=== PATIENT | male | born 2005 | race Caucasian/White ===

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

== ENCOUNTER 2024-06-24 22:45 | Emergency (ER) | payer MEDICAID, SELFPAY ==
[2024-06-24 22:46] VITALS: BP 133/91; PULSE 65; RESP 18; TEMP 36.8; O2SAT 96; BMI 27.3
[2024-06-24 23:23] VITALS: BP 135/85; PULSE 66; O2SAT 98
[2024-06-24 23:26] LABS: Bilirubin Urine Negative (Negative); Blood Urine Negative (Negative); Glucose Urine UA Negative (Normal); Ketones Urine Trace (Negative); Leukocyte Esterase Urine Negative (Negative); Nitrate Urine Negative (Negative); Protein Urine Negative (Negative); Specific Gravity, Urine 1.029 (1.005-1.030); Urine Appearance Clear (CLEAR); Urine Color Yellow (Yellow)
[2024-06-24 23:29] LABS: Bacteria Urine None Seen /hpf; RBC Urine 0-2 /hpf (0-2); Squamous Epithelial Cell Urine 0-5 /hpf (0-5); WBC Urine 0-5 /hpf (0-5)
[2024-06-25] VITALS: BP 132/94; PULSE 72; O2SAT 98
--- NOTE | 2024-06-25 00:05 | W.ED.MALEGU ---
HPI - Male Genitourinary General: Chief complaint: Urogenital-Male Stated complaint: Testicles Hurt Time Seen by Provider: 06/24/24 23:37 History of Present Illness: 19-year-old male patient with a history of right sided testicular pain for the past 24 hours or so. He noticed that walking yesterday now. Now it hurts with getting up from sitting, walking, etc. No fever. No penile discharge. No change in the look of his urine. He has not had this problem before. Related Data Home Medications ?Medication ?Instructions ?Recorded ?Confirmed hydroxyzine HCl 25 mg tablet 25 mg PO .HS 08/26/21 05/15/23 vortioxetine 10 mg tablet 10 mg PO DAILY 08/26/21 05/15/23 (Trintellix) Previous Rx's ?Medication ?Instructions ?Recorded prazosin 5 mg capsule 5 mg PO .HS #30 caps 08/26/21 meclizine 50 mg tablet 50 mg PO TID PRN dizziness #30 tabs 05/15/23 ketorolac 10 mg tablet 10 mg PO TID PRN pain #10 tabs 06/25/24 Allergies Allergy/AdvReac Type Severity Reaction Status Date / Time No Known Allergies Allergy Verified 05/15/23 11:37 [facility] ED PFSH: Social History Smoking and tobacco/nicotine status: never used tobacco/nicotine Second hand smoke exposure: No Physical Exam Const: COMMON NORMALS: no acute distress GENERAL APPEARANCE: cooperative; not ill appearing and not frail appearing HENMT: COMMON NORMALS: normocephalic, atraumatic and Normal external nose present HEAD & SCALP: normocephalic and atraumatic FACE & SINUS: normal facial exam and face symmetric NOSE: Normal external nose present Eye: COMMON NORMALS: Equal, round and reactive pupils present and EOMs intact bilaterally PUPIL: Yes Equal, round and reactive pupils present Neck/C-Spine: GENERAL: Yes trachea midline Chest: CHEST: Yes Symmetrical chest wall rise Resp: COMMON NORMALS: normal respiratory effort, No retractions, No use of accessory muscles and clear to auscultation bilaterally AUSCULTATION: clear to auscultation bilaterally GI: COMMON NORMALS: Normal to inspection, nondistended, normoactive bowel sounds present : PENIS: normal penis OTHER: Some right inguinal tenderness, with no deformity or bulge. No lymphadenopathy. Testicle is normal. Epididymis is normal. Neuro: KAMAR COMA SCALE: document [facility] findings Kamar coma scale eye opening: Spontaneous Arco coma scale verbal response: Orientated Arco coma scale motor response: Obey commands Arco coma scale total score: 15 SENSORY EXAM: Yes extremities (intact) Psych: COMMON NORMALS: speech normal SPEECH: Yes normal speech Skin: COMMON NORMALS: no rashes or lesions noted GENERAL SKIN EXAM: no rashes or lesions noted Course Vital Signs: Vital signs: Vital Signs Temperature 98.3 F 06/24/24 22:46 Pulse Rate 61 06/25/24 02:04 Respiratory Rate 18 06/24/24 22:46 Blood Pressure 130/75 06/25/24 02:04 Pulse Oximetry 98 06/25/24 02:04 Oxygen Delivery Me thod Room Air 06/25/24 00:00 MDM - Male Medical Decision Making Urinalysis is negative. Testicular ultrasound pending. Ultrasound is negative for epididymitis, torsion, etc. He will be allowed home. Lab Data Radiology Impressions Scrotum Ultrasound 06/25/24 01:13 IMPRESSION: The testicles image normally. Laboratory Results Urine Color Yellow (Yellow) 06/24/24 23:21 Urine Appearance Clear (CLEAR) 06/24/24 23:21 Urine pH 6.0 (5-7) 06/24/24 23:21 Ur Specific [place] 1.029 (1.005-1.030) 06/24/24 23:21 Urine Protein Negative (Negative) 06/24/24 23:21 Urine Glucose (UA) Negative (Normal) 06/24/24 23:21 Urine Ketones Trace (Negative) 06/24/24 23:21 Urine Blood Negative (Negative) 06/24/24 23:21 Urine Nitrate Negative (Negative) 06/24/24 23:21 Urine Bilirubin Negative (Negative) 06/24/24 23:21 Urine Urobilinogen 1.0 mg/dL (Negative) 06/24/24 23:21 Ur Leukocyte Esterase Negative (Negative) 06/24/24 23:21 Urine RBC 0-2 /hpf (0-2) 06/24/24 23:21 Urine WBC 0-5 /hpf (0-5) 06/24/24 23:21 Ur Squamous Epith Cells 0-5 /hpf (0-5) 06/24/24 23:21 Amorphous Sediment Not Reportable 06/24/24 23:21 Urine Bacteria None seen /hpf (NONE) 06/24/24 23:21 Hyaline Casts 0.40 /lpf 06/24/24 23:21 XR interpretation done by ED provider, pending radiology final review Discharge Plan Discharge Patient Disposition: Home Clinical Impression: Pain in right testicle Condition: Stable Prescriptions: New ketorolac 10 mg tablet 10 mg PO TID PRN (Reason: pain) Qty: 10 0RF No Action Trintellix 10 mg tablet 10 mg PO DAILY hydroxyzine HCl 25 mg tablet 25 mg PO .HS prazosin 5 mg capsule 5 mg PO .HS Qty: 30 1RF meclizine 50 mg tablet 50 mg PO TID PRN (Reason: dizziness) Qty: 30 0RF Discharge Orders: Discharge ED (Routine); Ordered 06/25/24 Ordered By: Meet Brasher Patient Instructions: Testicle Pain (ED), Opioid Safety, Pain Management Activity Restrictions/Additional Instructions: Return for worsening pain despite treatment, swelling, discoloration, penile discharge, any other concerning symptoms. 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
[2024-06-25 01:03] VITALS: BP 118/74; PULSE 64; O2SAT 99
--- NOTE | 2024-06-25 01:13 | USR_ITS ---
PROCEDURE INFORMATION: Exam: US Scrotum Exam date and time: 06/25/2024 1:15 AM Age: 19 years old Clinical indication: Scrotum pain; Additional info: Testicular pain TECHNIQUE: Imaging protocol: Real-time ultrasound of the scrotum and contents with color Doppler and image documentation. COMPARISON: No relevant prior studies available. FINDINGS: Right testicle: The right testicle measures 3.4 x 2.9 x 2.2 cm with vascular flow. Left testicle: The left testicle measures 4.1 x 2.8 x 2.4 cm with vascular flow. Epididymides: The right epididymis measures 1.1 x 1.0 x 0.6 cm. The left epididymis measures 1.4 x 1.1 x 0.8 cm. Scrotum/soft tissues: Small bilateral hydroceles. US/US scrotum [id number] IMPRESSION: The testicles image normally.
[2024-06-25 02:04] VITALS: BP 130/75; PULSE 61; O2SAT 98
== END 2024-06-25 02:00 | disposition home or self-care (01) ==
PROVIDERS: Emergency Provider Emergency Medicine
DX: N50.811 Right testicular pain (principal)
CPT/HCPCS: 76870; 81001; 99284